=== PATIENT | female | born 1975 | race Caucasian/White ===

== ENCOUNTER 2021-08-12 18:59 | Emergency (ER) | payer BC ==
[2021-08-12 19:09] VITALS: BP 107/81; PULSE 87; TEMP 97.8; BMI 21.6
[2021-08-12] MEDS ORDERED: KETOROLAC TROMETHAMINE 60 MG/2 ML VIAL IM ONE (20:21)
[2021-08-12] MEDS ORDERED: KETOROLAC TROMETHAMINE 30 MG/1 ML VIAL ONE (20:27)
== END 2021-08-12 20:51 | disposition home or self-care (01) ==
LOC: FER 18:59
PROC: 3E023GC Introduction of Other Therapeutic Substance into Muscle, Percutaneous Approach (ICD-10-PCS; principal; 2021-08-12)
DX: S16.1XXA Strain of muscle, fascia and tendon at neck level, initial encounter (principal); R51.9 Headache, unspecified; X50.0XXA Overexertion from strenuous movement or load, initial encounter
CPT/HCPCS: 99284-25